=== PATIENT | female | born 1970 | race Caucasian/White ===

== ENCOUNTER 2022-03-07 07:59 | Day surgery (SDC) | payer OTHER, MEDICAID ==
[2022-03-02 12:09] LABS: Basophils # (auto) 0 10 ^3/uL (0-0.2); Basophils % (auto) 0.5 % (0.0-2.0); Eosinophils # (auto) 0.1 10 ^3/uL (0-0.8); Eosinophils % (auto) 2.5 % (0.0-7.0); Hematocrit 35.4 % (36.0-46.0); Hemoglobin 11.7 g/dL (12.2-16.2); Lymphocytes # (auto) 1.9 10 ^3/uL (0.4-5.4); Monocytes # (auto) 0.3 10 ^3/uL (0-1.3); Monocytes % (auto) 6.8 % (0.0-12.0); Neutrophils % (auto) 46.2 % (37.0-80.0); Red Blood Cells 4.03 10^6/uL (4.0-5.20); White Blood Cell 4.2 10^3/uL (4.4-10.8)
[2022-03-02 12:11] LABS: Urine Bacteria NONE SEEN /hpf (None Seen); Urine Blood Negative /uL (Negative); Urine Specific Gravity 1.019 (1.001-1.035); Urine WBC 13 /hpf (0 - 5)
[2022-03-02 12:23] LABS: INR 0.97 (0.9-1.15); Partial Thromboplastin Time 25.4 sec (23.6-33.0)
[2022-03-02 12:46] LABS: Potassium 4.1 mmol/L (3.5-5.1)
[2022-03-02 12:55] LABS: Albumin 3.7 g/dL (3.4-5.0); BUN/Creatinine Ratio 16.9; Bilirubin, Total 0.2 mg/dL (0.2-1.0); Total Protein 7.4 g/dL (6.4-8.2)
[~2022-03-07] VITALS: Ht 165.1 cm; Wt 81.6 kg
[~2022-03-07 07:59] MED LIST: ALPR0.5T PO; CITA10TA8 PO; DIPH25CA66 PO; METH750T22 PO; ROPI0.5T18 PO; TEMA30CA PO; TOPI100T29 PO
[2022-03-07] MEDS ORDERED: LIDOCAINE 1%HCL (LOCAL ANESTH) 10 ML MDV ONE (10:16)
[2022-03-07] MEDS ORDERED: BUPIVACAINE HCL 50 ML ONE (10:16)
[2022-03-07] MEDS ORDERED: fentaNYL CITRATE 100 MCG/2 ML VL ONE (10:37)
[2022-03-07] MEDS ORDERED: MIDAZOLAM HCL 2MG/2ML 2ml VIAL (1mg/ml) ONE (10:37)
[2022-03-07] MEDS: CLINDAMYCIN 600MG IV 50 ML IV ONE (10:55)
[2022-03-07] MEDS ORDERED: ONDANSETRON HCL 4 MG/2 ML VIAL IV PRN (11:15)
[2022-03-07] MEDS ORDERED: ONDANSETRON HCL 4 MG/2 ML VIAL ONE (11:23)
[2022-03-07] MEDS ORDERED: PROPOFOL 10 MG/ML 20 ML IV ONE (11:23)
[2022-03-07 12:45] VITALS: BP 122/81
== END 2022-03-07 13:00 | disposition home or self-care (01) ==
LOC: SUR 07:59
PROVIDERS: ATTEND Podiatrist
DX: M20.12 Hallux valgus (acquired), left foot (principal); M20.11 Hallux valgus (acquired), right foot; I10 Essential (primary) hypertension; F41.9 Anxiety disorder, unspecified; F32.A Depression, unspecified; Z98.891 History of uterine scar from previous surgery; Z98.890 Other specified postprocedural states; Z79.899 Other long term (current) drug therapy; Z88.0 Allergy status to penicillin; Z91.048 Other nonmedicinal substance allergy status; Z88.5 Allergy status to narcotic agent; Z98.84 Bariatric surgery status; Z90.89 Acquired absence of other organs
CPT/HCPCS: 28299; 36415; 73620; 76000; 80053; 81001; 85025; 85610; 85730; C1713; J2001; J2250; J2405; J2704; J3010; J3490; U0003